=== PATIENT | male | born 1960 | race Caucasian/White ===

== ENCOUNTER 2017-04-23 12:32 | Emergency (ER) | payer BC ==
--- NOTE | 2017-04-23 13:06 | EDM.PDOC ---
<Felicity Guerrero - Last Filed: 04/23/17 16:13> ED HPI GENERAL MEDICAL PROBLEM - General Chief Complaint: ENT Problem Stated Complaint: BREATHING PROBLEMS,CHESTCOLD [id number] Time Seen by Provider: 04/23/17 12:47 Source of Information: Reports: Patient History Limitations: Reports: No Limitations - History of Present Illness INITIAL COMMENTS - FREE TEXT/NARRATIVE: Zeeshan is a 56 yo male who presents to the ED today due to complaints of a cough and shortness of breath for the last 5-6 days. He reports that he has had a runny nose, sore throat, and post nasal drip. Reports that the cough is non- productive. Denies fever or chills. patient reports that he took an old amoxicillin prescription for the last 5 days that he had left over and over the counter Mucinex without relief. Occasional tobacco usage. Patient reports that he uses it "socially." Onset Date: 04/18/17 Duration: Constant, Getting Worse Severity: Moderate Improves with: Reports: None Worsens with: Reports: Movement Associated Symptoms: Reports: Cough, Shortness of Breath, Weakness - Related Data Allergies Allergy/AdvReac Type Severity Reaction Status Date / Time No Known Allergies Allergy Verified 04/23/17 12:38 Home Meds: Home Meds Metoprolol Tartrate 150 mg PO DAILY 04/23/17 [History] Past Medical History - Past Health History Medical/Surgical History: Denies Medical/Surgical History Cardiovascular History: Reports: Afib Social & Family History - Family History Family Medical History: Noncontributory - Tobacco Use Smoking Status *Q: Current Some Day Smoker Years of Tobacco use: 27 Packs/Tins Daily: 1 - Caffeine Use Caffeine Use: Reports: Coffee - Recreational Drug Use Recreational Drug Use: No ED ROS GENERAL - Review of Systems Review Of Systems: ROS reveals no pertinent complaints other than HPI. ED EXAM, GENERAL - Physical Exam Exam Limited By: No Limitations General Appearance: Alert, WD/WN, No Apparent Distress Eye Exam: Bilateral Eye: PERRL Ears: Normal External Exam, Normal Canal, Hearing Grossly Normal, Normal TMs Ear Exam: Bilateral Ear: Canal Normal, TM normal Nose: Normal Inspection, Normal Mucosa Throat/Mouth: Normal Inspection, Normal Lips, Normal Teeth, Normal Oropharynx Head: Atraumatic, Normocephalic Neck: Normal Inspection, Supple Respiratory/Chest: No Respiratory Distress, No Accessory Muscle Use, Crackles ( Coarse crackles and wheezes noted throughtout ) Cardiovascular: Regular Rate, Rhythm, No Gallop, No JVD, No Murmur, No Rub, Other (bilateral lower extremity swelling present. 2-3 plus) GI/Abdominal: Normal Bowel Sounds, Soft, Non-Tender, No Organomegaly, No Distention (Male) Exam: Deferred Rectal (Males) Exam: Deferred Back Exam: Normal Inspection, Full Range of Motion Extremities: Normal Inspection, Normal Range of Motion, Normal Capillary Refill Neurological: Alert, Oriented, CN II-XII Intact Psychiatric: Normal Affect, Normal Mood Skin Exam: Warm, Dry, Intact, Normal Color, No Rash Lymphatic: No Adenopathy EKG INTERPRETATION EKG Date: 04/23/17 Time: 13:00 Rhythm: A-Flutter Rate (Beats/Min): 122 Comparison: NA - No Prior EKG Course - Vital Signs Last Recorded V/S: Last Vital Signs Temp 36.2 C 04/23/17 12:43 Pulse 118 H 04/23/17 16:26 Resp 18 04/23/17 12:43 BP 130/85 04/23/17 16:18 Pulse Ox 100 04/23/17 12:43 - Orders/Labs/Meds Orders: Active Orders 24 hr Category Date Time Status EKG Documentation Completion [RC] STAT Care 04/23/17 12:57 Active Peripheral IV Care [RC] . DIRECTED Care 04/23/17 12:58 Active RT Aerosol Therapy [RC] ASDIRECTED Care 04/23/17 13:05 Active RT Aerosol Therapy [RC] ASDIRECTED Care 04/23/17 13:23 Active CULTURE STREP A CONFIRMATION [] Stat Lab 04/23/17 14:09 Results STREP SCRN A RAPID W CULT CONF [] Stat Lab 04/23/17 14:09 Results Sodium Chloride 0.9% [Saline Flush] Med 04/23/17 12:56 Active 10 ml FLUSH ASDIRECTED PRN Peripheral IV Insertion Adult [OM.PC] Stat Oth 04/23/17 12:57 Ordered Medication Orders Sodium Chloride (Saline Flush) 10 ml FLUSH ASDIRECTED PRN PRN Reason: Keep Vein Open Last Admin: 04/23/17 13:09 Dose: 10 ml Labs: Laboratory Tests 04/23/17 04/23/17 04/23/17 Range/Units 13:04 13:04 13:06 WBC 7.1 (5.0-10.0) 10^3/uL RBC 4.80 (4.6-6.2) 10^6/uL Hgb 15.4 (14.0-18.0) g/dL Hct 46.8 (40.0-54.0) % MCV 97.5 (80-100) fL MCH 32.1 (27.0-34.0) pg MCHC 32.9 L (33.0-35.0) g/dL Plt Count 147 L (150-450) 10^3/uL Neut % (Auto) 81.5 H (42.2-75.2) % Lymph % (Auto) 10.5 L (20.5-50.1) % [place] % (Auto) 7.8 (2-8) % Eos % (Auto) 0.1 L (1.0-3.0) % Baso % (Auto) 0.1 (0.0-1.0) % Sodium 133 L (135-145) mmol/L Potassium 3.8 (3.6-5.0) mmol/L Chloride 98 L (101-111) mmol/L Carbon Dioxide 24.0 (21.0-31.0) mmol/L Anion Gap 14.8 BUN 16 (7-18) mg/dL Creatinine 1.0 (0.6-1.3) mg/dL Est Cr Clr Drug Dosing 81.50 mL/min Estimated GFR (MDRD) > 60 BUN/Creatinine Ratio 16.00 Glucose 119 H (74-105) mg/dL Calcium 8.6 (8.4-10.2) mg/dl Total Bilirubin 0.8 (0.2-1.0) mg/dL AST 46 H (10-42) IU/L ALT 38 (10-60) IU/L Alkaline Phosphatase 46 (42-121) IU/L Troponin I 0.02 (0.00-0.02) ng/ml B-Natriuretic Peptide 361 H (0-100) pg/ml Total Protein 8.2 (6.7-8.2) g/dl Albumin 4.2 (3.2-5.5) g/dl Globulin 4.0 Albumin/Globulin Ratio 1.05 Urine Color Yellow (YELLOW) Urine Appearance Slightly cloudy (CLEAR) Urine pH 5.0 (5.0-9.0) Ur Specific [place] >= 1.030 (1.005-1.030) Urine Protein 100 H (NEGATIVE) Urine Glucose (UA) Negative (NEGATIVE) Urine Ketones 15 H (NEGATIVE) Urine Occult Blood Negative (NEGATIVE) Urine Nitrite Negative (NEGATIVE) Urine Bilirubin Small H (NEGATIVE) Urine Urobilinogen 0.2 (0.2-1.0) mg/dL Ur Leukocyte Esterase Negative (NEGATIVE) Urine RBC 0-5 /HPF Urine WBC 0-5 (0-5/HPF) /HPF Ur Epithelial Cells Rare /HPF Amorphous Sediment Rare (0/HPF) /HPF Urine Bacteria Few (0-FEW/HPF) /HPF Urine Mucus Few H /LPF Urine Opiates Screen (NEGATIVE) Ur Oxycodone Screen (NEGATIVE) Urine Methadone Screen (NEGATIVE) Ur Barbiturates Screen (NEGATIVE) U Tricyclic Antidepress (NEGATIVE) Ur Phencyclidine Scrn (NEGATIVE) Ur Amphetamine Screen (NEGATIVE) U Methamphetamines Scrn (NEGATIVE) Urine MDMA Screen (NEGATIVE) U Benzodiazepines Scrn (NEGATIVE) Urine Cocaine Screen (NEGATIVE) U Marijuana (THC) Screen (NEGATIVE) Ethyl Alcohol < 5 mg/dL 04/23/17 Range/Units 13:06 WBC (5.0-10.0) 10^3/uL RBC (4.6-6.2) 10^6/uL Hgb (14.0-18.0) g/dL Hct (40.0-54.0) % MCV (80-100) fL MCH (27.0-34.0) pg MCHC (33.0-35.0) g/dL Plt Count (150-450) 10^3/uL Neut % (Auto) (42.2-75.2) % Lymph % (Auto) (20.5-50.1) % [place] % (Auto) (2-8) % Eos % (Auto) (1.0-3.0) % Baso % (Auto) (0.0-1.0) % Sodium (135-145) mmol/L Potassium (3.6-5.0) mmol/L Chloride (101-111) mmol/L Carbon Dioxide (21.0-31.0) mmol/L Anion Gap BUN (7-18) mg/dL Creatinine (0.6-1.3) mg/dL Est Cr Clr Drug Dosing mL/min Estimated GFR (MDRD) BUN/Creatinine Ratio Glucose (74-105) mg/dL Calcium (8.4-10.2) mg/dl Total Bilirubin (0.2-1.0) mg/dL AST (10-42) IU/L ALT (10-60) IU/L Alkaline Phosphatase (42-121) IU/L Troponin I (0.00-0.02) ng/ml B-Natriuretic Peptide (0-100) pg/ml Total Protein (6.7-8.2) g/dl Albumin (3.2-5.5) g/dl Globulin Albumin/Globulin Ratio Urine Color (YELLOW) Urine Appearance (CLEAR) Urine pH (5.0-9.0) Ur Specific [place] (1.005-1.030) Urine Protein (NEGATIVE) Urine Glucose (UA) (NEGATIVE) Urine Ketones (NEGATIVE) Urine Occult Blood (NEGATIVE) Urine Nitrite (NEGATIVE) Urine Bilirubin (NEGATIVE) Urine Urobilinogen (0.2-1.0) mg/dL Ur Leukocyte Esterase (NEGATIVE) Urine RBC /HPF Urine WBC (0-5/HPF) /HPF Ur Epithelial Cells /HPF Amorphous Sediment (0/HPF) /HPF Urine Bacteria (0-FEW/HPF) /HPF Urine Mucus /LPF Urine Opiates Screen Negative (NEGATIVE) Ur Oxycodone Screen Negative (NEGATIVE) Urine Methadone Screen Negative (NEGATIVE) Ur Barbiturates Screen Negative (NEGATIVE) U Tricyclic Antidepress Negative (NEGATIVE) Ur Phencyclidine Scrn Negative (NEGATIVE) Ur Amphetamine Screen Negative (NEGATIVE) U Methamphetamines Scrn Negative (NEGATIVE) Urine MDMA Screen Negative (NEGATIVE) U Benzodiazepines Scrn Negative (NEGATIVE) Urine Cocaine Screen Negative (NEGATIVE) U Marijuana (THC) Screen Negative (NEGATIVE) Ethyl Alcohol mg/dL Meds: Medications Generic Name Dose Route Start Last Admin Trade Name Freq PRN Reason Stop Dose Admin Sodium Chloride 10 ml 04/23/17 12:56 04/23/17 13:09 Saline Flush FLUSH 10 ml ASDIRECTED PRN Administration Keep Vein Open Discontinued Medications Generic Name Dose Route Start Last Admin Trade Name Freq PRN Reason Stop Dose Admin Albuterol/Ipratropium 3 ml 04/23/17 13:05 04/23/17 13:15 Duoneb 3.0-0.5 Mg/3 Ml NEB 04/23/17 13:06 3 ml ONETIME ONE Administration Albuterol/Ipratropium 3 ml 04/23/17 13:22 04/23/17 13:57 Duoneb 3.0-0.5 Mg/3 Ml NEB 04/23/17 13:23 3 ml ONETIME ONE Administration Aspirin 324 mg 04/23/17 15:25 04/23/17 15:38 Aspirin PO 04/23/17 15:26 324 mg ONETIME ONE Administration Digoxin 250 mcg 04/23/17 16:02 Lanoxin PO 04/23/17 16:03 ONETIME ONE Digoxin 400 mcg 04/23/17 16:15 04/23/17 16:26 Lanoxin IVPUSH 04/23/17 16:16 400 mcg ONETIME ONE Administration Diltiazem HCl 10 mg 04/23/17 14:59 04/23/17 15:05 Diltiazem IVPUSH 04/23/17 15:00 10 mg ONETIME ONE Administration Diltiazem HCl 10 mg 04/23/17 16:15 04/23/17 16:30 Diltiazem IVPUSH 04/23/17 16:16 10 mg ONETIME ONE Administration Furosemide 60 mg 04/23/17 14:57 04/23/17 15:05 Lasix IVPUSH 04/23/17 14:58 60 mg NOW ONE Administration Methylprednisolone Sodium Succinate 125 mg 04/23/17 14:20 04/23/17 14:41 Solu-Medrol IVPUSH 04/23/17 14:21 125 mg ONETIME ONE Administration Metoprolol Succinate 200 mg 04/23/17 16:02 04/23/17 16:18 Toprol Xl PO 04/23/17 16:03 200 mg ONETIME ONE Administration - Radiology Interpretation Free Text/Narrative:: Chest x-ray: Generalized pulmonary venous congestion. No current signs of alveolar edema or effusion. No lung mass, hilar lymphadenopathy or focal lobar pneumonia. See radiology report. - Re-Assessments/Exams Free Text/Narrative Re-Assessment/Exam: 1530: Heart rate remains atrial flutter. Patient reports that he is feeling much better after neb treatments. Talked with Patients bakelite molder at [facility] for further recommendations. Discussed admission with patient for rate control and further medical management. Patient refusing to be admitted states "I am here on vacation and I am not having my vacation in the hospital." Discussed risks with patient including worsening symptoms, including a blood clot, stroke, or ND. Due to the fact that he is traveling and the fact that he will not be following up in the next couple days, discussed with patient that we would place him on ASA vs some other anticoagulant at this time due to his risk of stroke vs bleeding risk. Patient continues to insist on being discharged. Red flag signs reviewed as to when he should return including chest pain, worsening shortness of breath, dizziness. Patient verbalizes understanding. Denies any further questions or concerns at this time. Free Text/Narrative Re-Assessment/Exam: Heart rate continues to be in the 130s. Rebolused with diltiazem 10 mg. 04/23/17 16:26 Departure - Departure Time of Disposition: 16:30 Disposition: Against Medical Advice 07 Condition: Fair, Serious Clinical Impression: Atrial flutter Qualifiers: Atrial flutter type: unspecified Qualified Code(s): I48.92 - Unspecified atrial flutter Congestive heart failure (CHF) Qualifiers: Heart failure type: unspecified Heart failure chronicity: acute Qualified Code( s): I50.9 - Heart failure, unspecified - Discharge Information Instructions: Atrial Flutter, Heart Failure, [id number] Forms: ED Department Discharge, Refusal of Care AMA Additional Instructions: Rx: Lasix 40mg Rx: Potassium Chloride 20mEq Rx: dioxin 0.25mg Take over the counter Enteric Coated Aspirin 325mg one tablet by mouth every day. Increase metoprolol 100mg to one tablet twice daily If you wish to reconsider admission to the hospital return to the emergency department Return to the ER if you develop chest pain or pressure, dizziness, shortness of breath, or any other worrisome symptoms. Call Dr [facility] clinic in the [facility] to schedule the first available appointment. <Hector Soto - Last Filed: 04/23/17 17:29> ED HPI GENERAL MEDICAL PROBLEM - History of Present Illness INITIAL COMMENTS - FREE TEXT/NARRATIVE: I was ask by Felicity QUICK to see the pt and assist her with his evaluation and treatment in the ER. The pt is a pleasant man, but begins by stating that we "have one hour to treat him, or do whatever we are going to do" because he is leaving the ER/hospital because he is on vacation and he absolutely will not stay longer or be admitted or transferred. Pt denies chest pain or pressure, and denies feeling that his heart is fast or irregular. He reports chronic edema, and states that his legs are no more edematous today than usual. He denies and leg or calf pain. He forgot to take his metoprolol 150mg this morning because he was eager to get out ice fishing. He reports a Hx of A-fib which he believes he had for about 3 or 4 yrs until he was referred to Dr. Hutson at [facility] and was cardioverted in June or July of 2016. I called and spoke with Dr. Hutson's nurse to relay pt's current findings and obtain add'l history. The nurse reports pt has Hx of A-fib and was cardioverted as the pt stated. Also, that pt has had a cardiac stress test and cath., and ECHO with normal EF. I informed the nurse that the pt was refusing to stay any longer in the ER and refusing admission or transfer. The nurse states that she will inform. Dr. Hutson and will place a call to the pt to facilitate compliance with a timely follow up appointment. Onset: Gradual ED EXAM, GENERAL - Physical Exam Exam: See Below Free Text/Narrative:: No changes to exam as documented by Felicity QUICK. General Appearance: Obese Respiratory/Chest: Crackles Cardiovascular: Other Neurological: Normal Cognition, Normal Gait, No Motor/Sensory Deficits EKG INTERPRETATION P-Wave: Present QRS: Normal ST-T: Other (repol. abnl. poss. ischemia) QT: Normal Course - Re-Assessments/Exams Free Text/Narrative Re-Assessment/Exam: 04/23/17 16:20 I personally repeated to the pt the findings of today's exam, the results of his labs, CXR, and EKG, and the seriousness of his condition. I explained the need for further evaluation such a serial cardiac enzymes, add'l lab studies such as thyroid panel, and r/o of P.E., etc. I advised the pt that I strongly recommend that he consent to being admitted to the hospital, and informed him of the risks of choosing to leave AMA, including risk of , ACS/AMI, worsening heart failure, respiratory distress/arrest, lightheadedness, syncope, stroke, and other potential adverse outcomes. Pt states that he is well aware of the risks, and still chooses to leave AMA.
[2017-04-23] MEDS: Sodium Chloride 0.9% 10 ML Syringe FLUSH PRN (13:09)
[2017-04-23] MEDS: Albuterol/Ipratropium 3.0-0.5 MG/3 ML Neb Soln NEB ONE ×2 (13:15→13:57)
[2017-04-23 13:31] LABS: CHLORIDE,CL 98 mmol/L (101-111); SODIUM,NA 133 mmol/L (135-145)
--- NOTE | 2017-04-23 14:23 | CR ---
Clinical history: 56-year-old male with chest "congestion" and shortness of breath. Interpretation: Abnormal. Large cardiac silhouette suggesting cardiomyopathy or pericardial effusion (ischemic heart disease). EKG? BNP? Generalized pulmonary venous congestion with cephalization of vascular flow but no current signs of a lveolar edema or effusion. No lung mass, hilar lymphadenopathy or focal lobar pneumonia. Deformity left first rib. No pneumothor ax. CONCLUSION: Cardiovascular decompensation (see above). Differential considerations include inflammato ry process. Clinical?
[2017-04-23] MEDS: methylPREDNISolone Sodium Succinate 125 MG/2 ML SDV IVPUSH ONE (14:41)
[2017-04-23] MEDS: Furosemide 40 MG/4 ML VIAL IVPUSH ONE (15:05)
[2017-04-23] MEDS: Diltiazem 25 MG/5 ML SDV IVPUSH ONE ×2 (15:05→16:30)
[2017-04-23] MEDS: Aspirin 81 MG Tab.Chew PO ONE (15:38)
[2017-04-23] MEDS ORDERED: Digoxin 250 MCG Tab PO ONE (16:02)
[2017-04-23] MEDS: Metoprolol Succinate 50 MG Tab.ER PO ONE (16:18)
[2017-04-23] MEDS: Digoxin 500 MCG/2 ML Amp IVPUSH ONE (16:26)
--- NOTE | 2017-04-25 10:21 | EKG ---
04/23/2017- MARTIN CORREA - FINDINGS: EKG, per my reading, shows atrial flutter at the rate of 120s. [facility] /[id number]
== END 2017-04-23 16:46 | disposition left against medical advice (07) ==
LOC: DL.ED 12:32
DX: I48.92 Unspecified atrial flutter (principal); I50.9 Heart failure, unspecified; F17.210 Nicotine dependence, cigarettes, uncomplicated; Z79.899 Other long term (current) drug therapy
CPT/HCPCS: 36415; 71046; 80053; 80305; 81001; 83880; 84484; 85025; 87081; 87430; 87804; 93005; 94640; 96374; 96375; 96376; 99285; A9270; G0480; J1160; J1940; J2930; J3490; J7050